=== PATIENT | female | born 1980 | race Caucasian/White ===

== ENCOUNTER 2018-04-23 01:26 | Inpatient (IN) ==
[2018-04-23] MEDS ORDERED: *HR* Nalbuphine 10 MG/ML AMPUL IM ONE (04:24)
[2018-04-23] MEDS ORDERED: Naloxone 0.4 MG/ML INJ IVP PRN (04:24)
[2018-04-23] MEDS ORDERED: *HR* HYDROcodone/Acet 5/325 mg TABLET PO PRN (04:24)
[2018-04-23] MEDS ORDERED: Isovue-370 500 ML INFUS..BTL IV ONE ×2 (04:25→11:05)
--- NOTE | 2018-04-23 04:46 | Internal Med History&Physical ---
Date of Encounter: 04/23/18 Time of Encounter: 04:42 Internal Medicine - H&P: HPI Chief complaint: finger swelling Admitted From: Home Plans for Post Hospital Care: Home History of present illness: Mel More is a 38 year old woman who reports a history of bradycardia and seizure disorder secondary to traumatic brain injury who presents here on transfer from [facility] for left middle finger swelling and pain. She states that about 3 weeks ago she first noticed slight swelling on the dorsum of the left middle finger which progressed and became erythematous. She was seen at [facility] ER and diagnosed with cellulitis of unclear etiology as she denied any trauma to the area or bite. She took 2 weeks of clindamycin at what seems to be a low dose as well as naproxen. She says she improved on this however by the time she completed treatment, the finger started to swell up again and this time worse. She was seen again in their ER last night and noted to have a double of the size of her finger with erythema extending down her mid-palm associated with functional impairment of the PIP joint. An x-ray was done which showed no fracture or signs of osteomyelitis. She was transferred here for further care. She reports having subjective fever and chills over these recent days. She denies ongoing illicit drug use, trauma to the finger or any bites. PMHx: As above. SHx: Active Smoker and reports illicit drug use over 20 years ago. FHx: CHF in mother. Review of systems: All systems reviewed and negative except as listed above in the HPI. Past Med Surg Social Fam HX - Past Medical History Medical history: seizures Psychiatric history: anxiety, depression - Social History Smoking Status: Current every day smoker Smokeless Tobacco Status: No Alcohol use: none Drug use: none Internal Medicine - H&P: Meds EPINEPHrine [Epipen] 0.3 mg IM ONCE 01/19/16 [History] Naproxen [Naprosyn] 500 mg PO BID #10 tablet 01/19/16 [Rx] Allergy/AdvReac Type Severity Reaction Status Date / Time Sulfa (Sulfonamide Allergy Anaphylaxis Verified 01/19/16 18:31 Antibiotics) venom-honey bee Allergy Swelling Verified 01/19/16 18:29 [bee venom (honey bee)] of Lip/Tongue/Throat All Systems PM: A 10-system review of systems was performed and is negative for pertinent findings except as documented above in the HPI. - Constitutional Vitals: Temp Pulse Resp BP Pulse Ox 98.5 F 58 16 111/72 100 04/23/18 04:34 04/23/18 04:34 04/23/18 04:34 04/23/18 04:34 04/23/18 04:34 Exam: Vitals: Reviewed General: Well developed and well-appearing and in no acute distress Skin: Warm and supple HEENT: Moist mucous membranes. No conjunctivae pallor. Neck: No lymphadenopathy. No JVD. No carotid bruits. No palpable thyroid. Chest: Normal thoracic expansion. Normal breath sounds. Clear to auscultation. Heart: Normal S1 & S2; rhythmic. No rubs or murmurs. Abdomen: Non-distended, soft and non-tender to palpation. No peritoneal reaction. Extremities: No clubbing, cyanosis. Left middle finger appears 3 times circumferentially larger than the corresponding right finger with notable erythema, taut skin with scaling, boggy and tender to touch, limited flexion/extension, sensation intact, warm. Neurological: Awake, alert and oriented to person, place and time. No focal deficits. Psych: Affect appropriate. - Assessment and plan (1) Cellulitis of left middle finger Current Visit: Yes Status: Acute Assessment and plan: Unclear etiology. Has failed 2 weeks of outpatient therapy and thereby warrants inpatient admission. Will obtain lactate and peripheral blood cultures. IV vancomycin. Obtain contrast CT to r/o drainable fluid collection. Monitor for compressive ischemic signs. May benefit from orthopedic hand surgery evaluation. Pain control as needed. (2) Seizure disorder Current Visit: Yes Status: Acute Assessment and plan: Patient reports being on "Neurontin 800mg TID". Precautions ordered. (3) Bradycardia Current Visit: Yes Status: Acute Assessment and plan: Sinus. Asymptomatic. No further intervention needed. (4) Smoker Current Visit: Yes Status: Acute Assessment and plan: Counseled extensively and resources made available. (5) DVT prophylaxis Current Visit: Yes Status: Acute Assessment and plan: SubQ heparin. - Time Spent With Patient Total time spent is greater than 50% in coordination of care (as documented) at patient's floor/unit and/or counseling patient: Greater than 35 minutes
[2018-04-23] MEDS: *HR* Heparin 5,000 UNIT/ML VIAL SQ SCH ×2 (05:34→18:19)
[2018-04-23 06:08] LABS: Basophils % 0.3 %; Eosinophils # 0.2 K/mcL (0.0-0.6); Eosinophils % 4.3 %; Hematocrit 31.5 % (35.3-44.9); Hemoglobin 10.3 g/dL (11.5-15.4); Immature Granulocytes % 0.3 % (0-4); Lymphocytes # 1.3 K/mcL (0.6-4.6); Mean Corpuscular HGB Conc 32.7 g/dL (31.6-35.5); Mean Corpuscular Hemoglobin 29.3 pg (28.0-33.3); Mean Corpuscular Volume 89.5 fL (83.0-100.0); Mean Platelet Volume 9.8 fL (9.4-12.4); Monocytes # 0.3 K/mcL (0.0-1.3); Monocytes % 8.1 %; Neutrophils # 1.7 K/mcL (1.6-8.9); Platelet Count 210 K/mcL (140-400); Red Blood Count 3.52 M/mcL (3.82-4.97); Red Cell Distribution Width 13.5 % (11.5-14.5)
[2018-04-23 06:16] LABS: INR 1.1; Prothrombin Time 11.9 Seconds (9.4-12.1)
[2018-04-23 06:20] LABS: Activated Partial Thrombo Time 40.3 Seconds (26.0-36.0)
[2018-04-23 06:27] LABS: Alanine Aminotransferase 41 Units/L (7-52); Albumin 3.9 g/dL (3.5-5.7); Alkaline Phosphatase 97 Units/L (34-104); Aspartate Amino Transferase 41 Units/L (13-39); BUN/Creatinine Ratio 17 (6-26); Bilirubin,Direct 0.2 mg/dL (0.0-0.2); Bilirubin,Indirect 0.3 mg/dL (0.0-1.2); Bilirubin,Total 0.5 mg/dL (0.3-1.0); Blood Urea Nitrogen 10 mg/dL (6-20); Calcium 9.1 mg/dL (8.6-10.3); Carbon Dioxide 27 mEq/L (23-29); Chloride 105 mEq/L (98-107); Globulin 3.8 g/dL (2.4-3.5); Glucose 97 mg/dL (70-105); Osmolality,Calculated 285 (280-300); Potassium 3.4 mEq/L (3.5-5.1); Sodium 138 mEq/L (136-145); Total Protein 7.7 g/dL (6.4-8.9); eGFR For Non-African Americans > 60 (> 60)
[2018-04-23] MEDS: Gabapentin 400 MG CAPSULE PO SCH ×3 (10:19→20:43)
[2018-04-23] MEDS: Ringers Solution, Lactated 1,000 ML IVC SCH ×2 (11:14→14:30)
--- NOTE | 2018-04-23 14:30 | Event Note ---
Date of Encounter: 04/23/18 Time of Encounter: 14:22 Per pharmacy pt had last filled suboxone feb 2018. When pt was asked what she was on suboxone for, she stated " I did some stupid stuff at 13 years" Pt states she was abusing Xana and was using THC. After more questioning she admitted to hx of opiod abuse. She denies IVD use. CT L hand switched from routine to STAT CT L hand. CT/CT hand LT w con IMPRESSION: Tenosynovitis of the 3rd flexor tendons with associated soft tissue swelling. This could be inflammatory or infectious in nature. The findings were sent to the Radiology Results Communication Center at 12:24 pm on 04/23/2018to be communicated to a licensed caregiver. Physical exam: General: Alert and oriented x 3. Heart. RRR, S1, S2 audible and no murmur. Lungs. CTABL Extremities. Left middle/3rd digit indurated with edema, and erythema. painful to the touch. Case discussed with Orthopedic and will see pt in consult.
[2018-04-23] MEDS: *HR* OxyCODONE Immed Rel 5 MG TABLET PO PRN ×2 (14:35→20:44)
--- NOTE | 2018-04-23 18:41 | Orthopedic Consult Note ---
Date of Encounter: 04/24/18 Time of Encounter: 17:50 Assessment and Plan (1) Cellulitis of left middle finger Current Visit: Yes Status: Acute CT shows tenosynovitis to left long finger. Compartments still soft but finger held in flexed position, unable to extend finger at PIPJ and significant swelling to proximal phalanx. Discussed with Dr. Santiago who recommends formal I&D of the left long finger in the OR scheduled for tomorrow. I reviewed the proce dure with patient as well as r/b/a and she expressed understanding. 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 NPO after midnight tonight. Keep hand elevated ROM as tolerated. Pain control per hospitalist. IV abx per hospitalist. Will reassess in the morning for any improvement or worsening and adjust plan as necessary. History of Present Illness Chief complaint: left hand swelling HPI: Ms. More is a 38 year old female who was transferred from [facility] today for left hand infection. she states that 3 weeks ago she woke up that morning and the finger felt like she had stoved it. She had swelling and redness later developed to long finger and she went to [facility] ER where she states she was prescribed 1.5 weeks worth of clindamycin. States symptoms improved while taking abx but then significantly worsened as soon as she finished the abx about a week ago. Shates pain is described as burning and throbbing intermittent, worse with motion. Currently pain is tolerable with medications. Pain localized to hand and does not radiate up arm. She states at one point the skin was sloughing around the finger but has not happened again recently. She denies any known trauma to the hand, any insect bites or needle sticks. Denies IVDA but did later admit to hospitalist previous h/o opioid abuse and has recently been on suboxone. She has a history of seizures and states maybe she had a seizure while she was sleeping and hit finger. Denies any n/t to hand. States she had some nausea a couple days ago but this has resolved. Denies any vomiting. Denies chest pain, SOB, fevers or chills. She is left hand dominant. Past Med Surg Social Fam HX - Past Medical History Medical history: seizures Psychiatric history: anxiety, depression - Social History Smoking Status: Current every day smoker Smokeless Tobacco Status: No Alcohol use: none Drug use: none - Family History Mother Living Status: Age at : 75 Hx Family Cardiac Disorders: Yes Medications and Allergies No Known Home Drugs 04/23/18 [History] Allergy/AdvReac Type Severity Reaction Status Date / Time Sulfa (Sulfonamide Allergy Anaphylaxis Verified 04/23/18 08:30 Antibiotics) venom-honey bee Allergy Swelling Verified 04/23/18 08:30 [bee venom (honey bee)] of Lip/Tongue/Throat All Systems Reviewed: The remainder of the systems were reviewed and are negative - Constitutional Constitutional: as per HPI - Cardiovascular Cardiovascular: as per HPI - Respiratory Respiratory: as per HPI - Musculoskeletal Musculoskeletal: as per HPI Physical Exam - Constitutional Vitals: Temp Pulse Resp BP Pulse Ox 97.9 F 67 16 103/63 98 04/23/18 07:34 04/23/18 07:34 04/23/18 07:34 04/23/18 07:34 04/23/18 07:34 - Wrist & Hand left Location of pain: long finger (significant swelling to long finger proximal phalanx, erythema noted on palmar surface over proximal phalanx extending down to 3rd metacarpal.long finger is held in flexed position and unable to passively extend the finger at PIPJ, minimal ROM at MP joint.Moderate tenderness to palpation along tendon sheath at base of long finger over MC head, minimal pain with palpation over proximal phalanx. brisk cap refill. good sensation distally. ) Results - Labs Result Diagrams: 04/23/18 05:54 04/23/18 05:54 Labs: Abnormal lab results WBC 3.5 K/mcL (4.3-11.1) L 04/23/18 05:54 RBC 3.52 M/mcL (3.82-4.97) L 04/23/18 05:54 Hgb 10.3 g/dL (11.5-15.4) L 04/23/18 05:54 Hct 31.5 % (35.3-44.9) L 04/23/18 05:54 APTT 40.3 Seconds (26.0-36.0) H 04/23/18 05:54 Potassium 3.4 mEq/L (3.5-5.1) L 04/23/18 05:54 Creatinine 0.59 mg/dL (0.60-1.20) L 04/23/18 05:54 AST 41 Units/L (13-39) H 04/23/18 05:54 Globulin 3.8 g/dL (2.4-3.5) H 04/23/18 05:54 Albumin/Globulin Ratio 1.0 (1.1-2.2) L 04/23/18 05:54 H & H 04/23/18 Range/Units 05:54 Hgb 10.3 L (11.5-15.4) g/dL Hct 31.5 L (35.3-44.9) % All other labs normal. - Diagnostic results Wrist/Hand x-ray: image reviewed Wrist/Hand CT: report reviewed Consult Discharge Plan - Plan Referrals: NONE,PCP [Primary Care Provider] - - Attending Attestation Case and plan of care discussed with supervising physician who was available for all aspects of care.
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
[2018-04-23] MEDS: Ibuprofen 400 MG TABLET PO PRN (23:39)
[2018-04-24] MEDS: *HR* OxyCODONE Immed Rel 5 MG TABLET PO PRN ×3 (02:36→23:34)
[2018-04-24] MEDS: *HR* Heparin 5,000 UNIT/ML VIAL SQ SCH ×2 (05:51→18:14)
[2018-04-24] MEDS: Ringers Solution, Lactated 1,000 ML IVC SCH ×2 (07:16→16:39)
[2018-04-24] MEDS: Gabapentin 400 MG CAPSULE PO SCH ×3 (08:52→21:47)
[2018-04-24 10:49] LABS: Amphetamine Screen,Urine Positive ng/mL (Cutoff=1000); Barbiturate Screen,Urine Negative ng/mL (Cutoff=200); Benzodiazepines Screen,Urine Negative ng/mL (Cutoff=200); Cannabinoid Screen,Urine Positive ng/mL (Cutoff = 50); Cocaine Screen,Urine Negative ng/mL (Cutoff= 300); Opiate Screen,Urine Positive ng/mL (Cutoff=300); Phencyclidine Screen,Urine Negative ng/mL (Cutoff=25)
[2018-04-24] MEDS: Ibuprofen 400 MG TABLET PO PRN (11:00)
[2018-04-24] MEDS ORDERED: Lidocaine -MPF 2% 2 ML VIAL ONE (13:31)
[2018-04-24] MEDS ORDERED: *HR* Propofol 200 MG/20 ML VIAL IVP ONE ×2 (13:31→13:43)
[2018-04-24] MEDS ORDERED: *HR* FentaNYL (PF) 100 MCG/2 ML VIAL ONE (13:31)
[2018-04-24] MEDS ORDERED: *HR* Midazolam HCl 2 MG/2 ML VIAL ONE ×2 (13:31→13:43)
[2018-04-24] MEDS ORDERED: *HR* Succinylcholine 200 MG/10 ML VIAL IVP ONE (13:31)
[2018-04-24] MEDS ORDERED: *HR* HYDROmorphone (PF) 1 MG/ML SYRINGE ONE (13:48)
[2018-04-24] MEDS ORDERED: *HR* Midazolam HCl 5 MG/5 ML VIAL IVP ONE (14:01)
[2018-04-24] MEDS ORDERED: EPHEDrine 50 MG/ML VIAL ONE (14:17)
[2018-04-24] MEDS ORDERED: *HR* Promethazine 25 MG/ML VIAL IVP PRN ×2 (14:33→16:30)
[2018-04-24] MEDS ORDERED: *HR* OxyCODONE Immed Rel 5 MG TABLET PO PRN (14:33)
[2018-04-24] MEDS ORDERED: Ondansetron 4 MG/2 ML VIAL IVP ONE ×2 (14:33→16:30)
--- NOTE | 2018-04-24 15:00 | Operative Note ---
Date of procedure: 04/24/18 Pre-op diagnosis: Left hand/long finger suppurative flexor tenosynovitis Post-op diagnosis: same Procedure: Left hand incision and drainage of long finger flexor tendon sheath Anesthesia: GETA Surgeon: Marco Santiago Was there an medical practice assistant present: Yes [employer] Manager: Maya Ruiz Estimated blood loss (cc): 10 Tourniquet Time (Minutes): 11 Specimen: Sent to microbiology Condition: stable Disposition: PACU Procedure in Detail: The patient received IV antibiotics from the floor, was brought into the operating room and placed or table in supine position with the left upper extremity placed on hand table. A sign in was performed. The patient underwent general anesthesia. A tourniquet was placed on the operative arm close to the axilla. The left upper extremity was then prepped and draped in usual sterile fashion. A time was performed. The operative extremity was then elevated, pressure was held over the radial and ulnar arteries of the wrist level for 2 minutes, and the tourniquet was raised to a pressure of 250 mmHg. A 2 cm oblique incision was made on the volar aspect of the left long finger centered over the P1 segment. I bluntly dissected through the subcutaneous tissue and identified the flexor tendon sheath system. This mild tissue necrosis and the flexed tendon sheath was opened at the C1/A3 level, the flexor tendons appeared in good condition A 2.5 cm oblique incision was made over the A1 pablo at the base of the left long finger just proximal to the metacarpophalangeal joint flexion crease. The flexor sheath was opened proximal to the A1 pablo and the proximal end of the A1 pablo was then sharply incised. The finger was flexed, and there was minimal turbid fluid coming out from underneath the A2 pablo. An 8-Georgian feeding tube was placed into the flexed tendon sheath and irrigated out. This placed initially from the proximal side and also distal side. Also irrigated out going more distally under the A4 pablo. The tourniquet was let down. The wounds were irrigated with normal saline once again and hemostasis obtained with bipolar electrocautery. Skin incision were partially closed with 5-0 nylon vertical mattress and simple sutures. The wound was then packed with iodoform packing with 1 long strip going between the wounds. The base of the left long finger was infiltrated with 10 mL of 0.5% Marcaine providing a local block.Sterile dressings applied, the patient was extubated and taken to the recovery room in stable condition.
[2018-04-24] MEDS: *HR* HYDROmorphone (PF) 1 MG/ML SYRINGE IVP PRN ×4 (15:33→15:54)
--- NOTE | 2018-04-24 16:10 | Internal Med Progress Note ---
Hospitalist Progress Note - Encounter Date of Encounter: 04/24/18 Time of Encounter: 16:08 - Subjective Interval History: Pt states still having left middle finger pain. She denies fever, chills, N/V or diarrhea. She denies chest pain or SOB. - Exam Vitals: Temp Pulse Resp BP Pulse Ox 97.7 F 64 16 113/81 97 04/24/18 15:33 04/24/18 15:53 04/24/18 15:53 04/24/18 15:53 04/24/18 15:53 Exam: Vitals: Reviewed General: Well developed and well-appearing and in no acute distress Skin: Warm and supple HEENT: Moist mucous membranes. No conjunctivae pallor. Neck: No lymphadenopathy. No JVD. No carotid bruits. No palpable thyroid. Chest: Normal thoracic expansion. Normal breath sounds. Clear to auscultation. Heart: Normal S1 & S2; rhythmic. No rubs or murmurs. Abdomen: Non-distended, soft and non-tender to palpation. No peritoneal reaction. Extremities: No clubbing, cyanosis. Left middle finger appears 3 times circumferentially larger than the corresponding right finger with notable erythema, taut skin with scaling, boggy and tender to touch, limited flexion/extension, sensation intact, warm. Neurological: Awake, alert and oriented to person, place and time. No focal deficits. Psych: Affect appropriate. - Assessment and Plan (1) Tenosynovitis Current Visit: Yes Status: Acute Assessment and Plan: Unclear how infection developed. Has failed 2 weeks of outpatient therapy and thereby warrants inpatient admission. Peripheral blood cultures in progress. I Contrast CT of L hand showed tenosynovitis of 3rd digit/middle finger Orthopedic service consulted and pt taken to OR 04/24/2018. She is s/p L hand incision and drainage of long finger flexor tendon sheath. IV vancomycin and Zosyn ordered and will continue for now. Will adjust antibiotic based on culture and sensitivity results. Pain control as needed. (2) Cellulitis of left middle finger Current Visit: Yes Status: Acute Assessment and Plan: s/p ID of left 3rd digit of left hand IV vancomycin and Zosyn ordered and will continue for now. Will adjust antibiotic based on culture and sensitivity results. Pain control as needed. (3) Seizure disorder Current Visit: Yes Status: Acute Assessment and Plan: Patient reports being on "Neurontin 800mg TID". Sz precautions ordered. (4) Bradycardia Current Visit: Yes Status: Acute Assessment and Plan: Sinus. Asymptomatic. No further intervention needed. (5) Smoker Current Visit: Yes Status: Acute Assessment and Plan: Counseled extensively and resources made available. Cessation strongly advised. (6) Substance abuse Current Visit: Yes Status: Acute Assessment and Plan: Pt not forthcoming about drug use hx. She last filled suboxone Feb 2018. Pt's urine tox tested positive for Meth. Cessation strongly advised. DVT Prophylaxis: SubQ heparin. 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 She states that about 3 weeks ago she first noticed slight swelling on the dorsum of the left middle finger which progressed and became erythematous. She was seen at [facility] ER and diagnosed with cellulitis of unclear etiology as she denied any trauma to the area or bite. She took 2 weeks of clindamycin at what seems to be a low dose as well as naproxen. She says she improved on this however by the time she completed treatment, the finger started to swell up again and this time worse. She was seen again in their ER last night and noted to have a double of the size of her finger with erythema extending down her mid-palm associated with functional impairment of the PIP joint. An x-ray was done which showed no fracture or signs of osteomyelitis. She was transferred here for further care. She reports having subjective fever and chills over these recent days. She denies ongoing illicit drug use, trauma to the finger or any bites. PMHx: As above. SHx: Active Smoker and reports illicit drug use over 20 years ago. FHx: CHF in mother. Review of systems: All systems reviewed and negative except as listed above in the HPI. - Time Spent with Patient Total time spent is greater than 50% in coordination of care (as documented) at patient's floor/unit and/or counseling patient: 25 - 35 minutes Plan of Care Discussed with: patient Internal Medicine: Result - Labs CBC & Chem 7: 04/23/18 05:54 04/23/18 05:54 - ABG Interpretation ABG results: PT/INR, D-dimer PT 11.9 Seconds (9.4-12.1) 04/23/18 05:54 - Impressions Impressions Hand CT 04/23/18 11:05 IMPRESSION: Tenosynovitis of the 3rd flexor tendons with associated soft tissue swelling. This could be inflammatory or infectious in nature. The findings were sent to the Radiology Results Communication Center at 12:24 pm on 04/23/2018to be communicated to a licensed caregiver. D/ / 04/23/2018 12:27:34 Endy De Jesus / ivan Interpreting Provider: Endy De Jesus Consult Discharge Plan - Plan Referrals: NONE,PCP [Primary Care Provider] -
[2018-04-24] MEDS ORDERED: Ringers Solution, Lactated 1,000 ML ONE (16:24)
--- NOTE | 2018-04-24 16:26 | Anesthesia Evaluation Post Op ---
Date of Encounter: 04/24/18 Time of Encounter: 16:26 - Vital Signs Vital Signs: Vital Signs/O2 Sat, Most Current Temp Pulse Resp BP Pulse Ox 97.4 F L 49 16 112/72 100 04/24/18 16:03 04/24/18 16:13 04/24/18 16:13 04/24/18 16:13 04/24/18 16:13 - Lungs Lungs: Clear Ascult./Percussion - Airway Airway: Non-obstructed - Cardiovascular Regular Rate - Mental Status Mental Status: Alert & Oriented, Answers Appropriately - Pain Pain Scale: 6 Pain Scale used: Numeric (1 - 10) - Nausea Vomiting Nausea Vomiting: Not Present - Hydration Hydration: Ice chips, Has not voided Notes: 04/24/18 16:26 pt denies complaints - Discharge PostOp Status: Transfer Patient to floor
[2018-04-24] MEDS ORDERED: Naloxone 0.4 MG/ML INJ IVP PRN (16:30)
[2018-04-24] MEDS ORDERED: *HR* HYDROmorphone (PF) 1 MG/ML SYRINGE IVP PRN (16:30)
[2018-04-24 21:37] LABS: Acinetobacter baumannii by PCR Not Detected (Not Detect); Candida albicans by PCR Not Detected (Not Detect); Candida glabrata by PCR Not Detected (Not Detect); Candida krusei by PCR Not Detected (Not Detect); Candida parapsilosis by PCR Not Detected (Not Detect); Candida tropicalis by PCR Not Detected (Not Detect); Enterobacter cloacae Cmplx PCR Not Detected (Not Detect); Enterobacteriaceae by PCR Not Detected (Not Detect); Enterococcus by PCR Not Detected (Not Detect); Escherichia coli by PCR Not Detected (Not Detect); Klebsiella oxytoca by PCR Not Detected (Not Detect); Klebsiella pneumoniae by PCR Not Detected (Not Detect); Proteus by PCR Not Detected (Not Detect); Pseudomonas aeruginosa by PCR Not Detected (Not Detect); Serratia marcescens by PCR Not Detected (Not Detect); Staphylococcus aureus by PCR Not Detected (Not Detect); Staphylococcus by PCR Not Detected (Not Detect); Streptococcus agalactiae(B)PCR Not Detected (Not Detect); Streptococcus by PCR DETECTED (Not Detect); Streptococcus pneumoniae PCR Not Detected (Not Detect); Streptococcus pyogenes (A) PCR Not Detected (Not Detect); blaKPC Carbapenem-Resist Gene Not Detected (Not Detect); mecA Methicillin-Resist Gene Not Detected (Not Detect); vanA/B Vancomycin-Resist Genes Not Detected (Not Detect)
[2018-04-24] MEDS: Nicotine 14 MG PATCH.TD24 TD SCH (21:45)
[2018-04-24] MEDS: *HR* HYDROcodone/Acet 5/325 mg TABLET PO PRN (21:47)
[2018-04-25] MEDS: *HR* OxyCODONE Immed Rel 5 MG TABLET PO PRN ×3 (06:16→21:46)
[2018-04-25] MEDS: *HR* Heparin 5,000 UNIT/ML VIAL SQ SCH ×2 (06:18→17:59)
[2018-04-25 07:17] LABS: Basophils % 0.6 %; Eosinophils # 0.2 K/mcL (0.0-0.6); Eosinophils % 5.2 %; Hemoglobin 9.3 g/dL (11.5-15.4); Lymphocytes # 1.2 K/mcL (0.6-4.6); Lymphocytes % 33.5 %; Mean Corpuscular HGB Conc 33.2 g/dL (31.6-35.5); Mean Corpuscular Volume 90.3 fL (83.0-100.0); Mean Platelet Volume 10.3 fL (9.4-12.4); Monocytes # 0.3 K/mcL (0.0-1.3); Monocytes % 7.2 %; Neutrophils # 1.9 K/mcL (1.6-8.9); Platelet Count 219 K/mcL (140-400); Red Cell Distribution Width 13.9 % (11.5-14.5); Segmented Neutrophils % 53.5 %
[2018-04-25 07:33] LABS: BUN/Creatinine Ratio 14 (6-26); Blood Urea Nitrogen 8 mg/dL (6-20); Calcium 8.5 mg/dL (8.6-10.3); Carbon Dioxide 26 mEq/L (23-29); Chloride 108 mEq/L (98-107); Glucose 97 mg/dL (70-105); Osmolality,Calculated 288 (280-300); Potassium 3.9 mEq/L (3.5-5.1); Sodium 140 mEq/L (136-145); eGFR For Non-African Americans > 60 (> 60)
[2018-04-25 08:10] LABS: C-Reactive Protein 12 mg/L (Less than 10)
[2018-04-25] MEDS: *HR* HYDROcodone/Acet 5/325 mg TABLET PO PRN ×2 (09:11→17:54)
[2018-04-25] MEDS: Gabapentin 400 MG CAPSULE PO SCH ×3 (09:11→21:45)
[2018-04-25] MEDS: Nicotine 14 MG PATCH.TD24 TD SCH (09:13)
--- NOTE | 2018-04-25 10:25 | Internal Med Progress Note ---
Hospitalist Progress Note - Encounter Date of Encounter: 04/25/18 Time of Encounter: 10:23 - Subjective Interval History: Pt states still having left middle finger pain. She denies fever, chills, N/V or diarrhea. She denies chest pain or SOB. - Exam Vitals: Temp Pulse Resp BP Pulse Ox 98.7 F 82 13 107/60 99 04/25/18 04:35 04/25/18 04:35 04/25/18 04:35 04/25/18 04:35 04/25/18 04:35 Exam: Vitals: Reviewed General: Well developed and well-appearing and in no acute distress Skin: Warm and supple HEENT: Moist mucous membranes. No conjunctivae pallor. Neck: No lymphadenopathy. No JVD. No carotid bruits. No palpable thyroid. Chest: Normal thoracic expansion. Normal breath sounds. Clear to auscultation. Heart: Normal S1 & S2; rhythmic. No rubs or murmurs. Abdomen: Non-distended, soft and non-tender to palpation. No peritoneal reaction. Extremities: No clubbing, cyanosis. On admission left middle finger appeared 3 times circumferentially larger than the corresponding right finger with notable erythema, taut skin with scaling, boggy and tender to touch, limited flexion/extension, sensation intact, warm. s/p incision and drainage. Dressing clean dry and intact. Neurological: Awake, alert and oriented to person, place and time. No focal defi cits. Psych: Affect appropriate. - Assessment and Plan (1) Tenosynovitis Current Visit: Yes Status: Acute Assessment and Plan: Unclear how infection developed. Has failed 2 weeks of outpatient therapy and thereby warrants inpatient admission. Peripheral blood cultures in progress. I Contrast CT of L hand showed tenosynovitis of 3rd digit/middle finger Orthopedic service consulted and pt taken to OR 04/24/2018. She is s/p L hand incision and drainage of long finger flexor tendon sheath. IV vancomycin and Zosyn ordered and will continue for now. Wound culture so far growing Gram + cocci, Strep species. Will adjust antibiotic based on culture and sensitivity results. Pain control as needed. Possible DC today or 04/26/2018 on PO antibiotic depending on culture and sensitivity results. (2) Cellulitis of left middle finger Current Visit: Yes Status: Acute Assessment and Plan: s/p ID of left 3rd digit of left hand IV vancomycin and Zosyn ordered and will continue for now. Wound culture so far growing Gram + cocci, Strep species. Will adjust antibiotic based on culture and sensitivity results. Pain control as needed. (3) Seizure disorder Current Visit: Yes Status: Acute Assessment and Plan: Patient reports being on "Neurontin 800mg TID". Sz precautions ordered. (4) Bradycardia Current Visit: Yes Status: Acute Assessment and Plan: Sinus. Asymptomatic. No further intervention needed. (5) Smoker Current Visit: Yes Status: Acute Assessment and Plan: Counseled extensively and resources made available. Cessation strongly advised. (6) Substance abuse Current Visit: Yes Status: Acute Assessment and Plan: Pt not forthcoming about drug use hx. She last filled suboxone Feb 2018. Pt's urine tox tested positive for Meth. Cessation strongly advised. DVT Prophylaxis: SubQ heparin. 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 She states that about 3 weeks ago she first noticed slight swelling on the dorsum of the left middle finger which progressed and became erythematous. She was seen at [facility] ER and diagnosed with cellulitis of unclear etiology as she denied any trauma to the area or bite. She took 2 weeks of clindamycin at what seems to be a low dose as well as naproxen. She says she improved on this however by the time she completed treatment, the finger started to swell up again and this time worse. She was seen again in their ER last night and noted to have a double of the size of her finger with erythema extending down her mid-palm associated with functional impairment of the PIP joint. An x-ray was done which showed no fracture or signs of osteomyelitis. She was transferred here for further care. She reports having subjective fever and chills over these recent days. She denies ongoing illicit drug use, trauma to the finger or any bites. PMHx: As above. SHx: Active Smoker and reports illicit drug use over 20 years ago. FHx: CHF in mother. Review of systems: All systems reviewed and negative except as listed above in the HPI. - Time Spent with Patient Total time spent is greater than 50% in coordination of care (as documented) at patient's floor/unit and/or counseling patient: less than 15 minutes Plan of Care Discussed with: patient Internal Medicine: Result - Labs CBC & Chem 7: 04/25/18 06:08 04/25/18 06:08 Labs: Short CBC 04/25/18 Range/Units 06:08 WBC 3.5 L (4.3-11.1) K/mcL Hgb 9.3 L (11.5-15.4) g/dL Hct 28.0 L (35.3-44.9) % Plt Count 219 (140-400) K/mcL Neutrophils # 1.9 (1.6-8.9) K/mcL BMP 04/25/18 06:08 Sodium 140 Potassium 3.9 Chloride 108 H Carbon Dioxide 26 BUN 8 Creatinine 0.59 L Glucose 97 Calcium 8.5 L - ABG Interpretation ABG results: PT/INR, D-dimer PT 11.9 Seconds (9.4-12.1) 04/23/18 05:54 Consult Discharge Plan - Plan Referrals: NONE,PCP [Primary Care Provider] -
--- NOTE | 2018-04-25 13:59 | Orthopedics Progress Note ---
Date of Encounter: 04/25/18 Time of Encounter: 12:45 - Assessment and Plan (1) Cellulitis of left middle finger Current Visit: Yes Status: Acute Packing removed today from wound. Small amount purulent drainage with palpation around incision. Begin local wound care cleansing with soap/water 3xdaily then recover with dry gauze/kerlix dressings to allow ROM of fingers. Continue to elevate LUE. Can hang inside stockinette from IV pole to help keep elevated especially while sleeping. Labs: WBC 3.5, ESR 86 -->68, CRP 20 -->12 IV abx and pain control per hospitalist. Wound cultures are still pending Blood culture + x1 for G+cocci - Strep sp Will continue to monitor progress. Will follow up with Maya Ruiz PA-C in [facility] office on 04/30/18 at 10:45am Subjective Principal diagnosis: POD#1 s/p Left hand I&D of long finger flexor tendon sheath 04/24/18 Interval history: Patient doing well today with no concerns other than pain to left hand. Intermittent tingling to fingers. Denies any other symptoms at this time. Objective Vital signs: Vital Signs Temp Pulse Resp BP Pulse Ox 04/25/18 11:29 97.6 F 81 20 138/77 100 04/25/18 04:35 98.7 F 82 13 107/60 99 04/24/18 23:56 98.7 F 83 16 117/68 100 04/24/18 20:15 98.5 F 69 18 109/58 100 04/24/18 17:15 95.1 F L 52 14 121/74 100 04/24/18 17:00 95.0 F L 48 10 119/80 100 04/24/18 16:45 74 14 139/78 98 04/24/18 16:30 94.6 F L 44 12 119/66 100 04/24/18 16:13 97.4 F L 49 16 112/72 100 04/24/18 16:03 97.4 F L 68 16 112/75 100 04/24/18 15:53 64 16 113/81 97 04/24/18 15:43 57 16 113/73 100 04/24/18 15:33 97.7 F 72 16 134/85 100 04/24/18 15:23 70 16 117/72 100 04/24/18 15:13 64 16 118/67 98 04/24/18 15:03 97.4 F L 77 20 110/58 97 Intake and Output 04/24/18 04/25/18 04/25/18 23:59 07:59 15:59 Intake Total 250 / 250 Balance 250 / 250 Intake: IV Fluids 250 / 250 Vancocin 1,000 MG In 0.9 % 250 / 250 Sodium Chloride 250 ML @ 167 mls/hr IVPB Q12H DENNY Rx#: [id number] Oral Other: # Urine Diapers 2 Weight 75.6 kg Incision: swollen (Continued swelling to left LF proximal phalanx and palmar area over 2/3/4 MC heads with mild erythema. Sutures in place, packing place. small amount purulent drainage after removal of packing. Continue restrcted motion of LF flexion and extension. brisk cap refill, sensation intact distally) - Labs CBC & BMP: 04/25/18 06:08 04/25/18 06:08 Labs: Abnormal lab results WBC 3.5 K/mcL (4.3-11.1) L 04/25/18 06:08 RBC 3.10 M/mcL (3.82-4.97) L 04/25/18 06:08 Hgb 9.3 g/dL (11.5-15.4) L 04/25/18 06:08 Hct 28.0 % (35.3-44.9) L 04/25/18 06:08 ESR 68 mm/hr (0-15) H 04/25/18 06:08 APTT 40.3 Seconds (26.0-36.0) H 04/23/18 05:54 Chloride 108 mEq/L (98-107) H 04/25/18 06:08 Creatinine 0.59 mg/dL (0.60-1.20) L 04/25/18 06:08 POC Glucose 113 mg/dL (70-99) H 04/25/18 07:51 Calcium 8.5 mg/dL (8.6-10.3) L 04/25/18 06:08 AST 41 Units/L (13-39) H 04/23/18 05:54 C-Reactive Protein 12 mg/L (Less than 10) H 04/25/18 06:08 Globulin 3.8 g/dL (2.4-3.5) H 04/23/18 05:54 Albumin/Globulin Ratio 1.0 (1.1-2.2) L 04/23/18 05:54 Vancomycin Trough 17 mcg/mL (5-10) H 04/24/18 13:36 Urine Opiates Screen Positive ng/mL (Mbadcl=239) H 04/24/18 10:25 Ur Amphetamines Screen Positive ng/mL (Vjxlbt=[id number]) H 04/24/18 10:25 U Marijuana (THC) Screen Positive ng/mL (Cutoff = 50) H 04/24/18 10:25 Streptococcus sp PCR DETECTED (Not Detect) A 04/24/18 03:03 Consult Discharge Plan - Plan Referrals: NONE,PCP [Primary Care Provider] -
[2018-04-26] MEDS: *HR* Heparin 5,000 UNIT/ML VIAL SQ SCH ×2 (04:36→17:36)
[2018-04-26] MEDS: Gabapentin 400 MG CAPSULE PO SCH ×3 (08:21→21:14)
[2018-04-26] MEDS: *HR* OxyCODONE Immed Rel 5 MG TABLET PO PRN ×3 (08:21→17:49)
[2018-04-26] MEDS: Nicotine 14 MG PATCH.TD24 TD SCH (08:22)
--- NOTE | 2018-04-26 10:05 | Internal Med Progress Note ---
Hospitalist Progress Note - Encounter Date of Encounter: 04/26/18 Time of Encounter: 10:02 - Subjective Interval History: gayla was seen and examiend at bedside. has no complaints, reports that her pain is controlled with pain medications provided. tolerating diet. no overnight events. - Exam Vitals: Temp Pulse Resp BP Pulse Ox 98.5 F 89 18 130/56 98 04/26/18 06:53 04/26/18 06:53 04/26/18 06:53 04/26/18 06:53 04/26/18 06:53 Exam: General: Well developed and well-appearing and in no acute distress Skin: Warm and supple HEENT: Moist mucous membranes. No conjunctivae pallor. Neck: No lymphadenopathy. No JVD. No carotid bruits. No palpable thyroid. Chest: Normal thoracic expansion. Normal breath sounds. Clear to auscultation. Heart: Normal S1 & S2; rhythmic. No rubs or murmurs. Abdomen: Non-distended, soft and non-tender to palpation. No peritoneal reaction. Extremities: No clubbing, cyanosis. moving the fingers of the left hand, swollen, wrapped in clean dressing Neurological: Awake, alert and oriented to person, place and time. No focal def icits. Psych: Affect appropriate. - Assessment and Plan (1) Tenosynovitis Current Visit: Yes Status: Acute Assessment and Plan: Has failed 2 weeks of outpatient therapy and thereby warrants inpatient admission. WBC 3.5, ESR 86 -->68, CRP 20 -->[address] of L hand showed tenosynovitis of 3rd digit/middle finger Orthopedic service consulted and pt taken to OR 04/24/2018. She is s/p L hand incision and drainage of long finger flexor tendon sheath. on IV vancomycin Wound culture from 04/26- growing staph - follow sensitivity also strep positive PCR Bcx: growing gram positive cocci- follow sensitivity Will adjust antibiotic based on culture and sensitivity results. Pain control as needed. (2) Cellulitis of left middle finger Current Visit: Yes Status: Acute Assessment and Plan: s/p I&D of left 3rd digit of left hand WBC 3.5, ESR 86 -->68, CRP 20 -->12 on IV vancomycin Wound culture from 04/26- growing staph - follow sensitivity also strep positive PCR Bcx: growing gram positive cocci- follow sensitivity orthopedics on board local wound care cleansing with soap/water 3xdaily then recover with dry gau ze/kerlix dressings to allow ROM of fingers. has drug use disorder will get TTE as blood cx are positive (3) Gram-positive bacteremia Current Visit: Yes Status: Acute Assessment and Plan: WBC 3.5, ESR 86 -->68, CRP 20 -->12 with cellulitis adn tenosynovitis of the left hand on IV vancomycin has history of drug use TTE ordered 2 new Bcx ordered on 04/26/18 will follow HIV with AM labs (4) Seizure disorder Current Visit: Yes Status: Acute Assessment and Plan: Patient reports being on "Neurontin 800mg TID". Sz precautions (5) Bradycardia Current Visit: Yes Status: Acute Assessment and Plan: Sinus. Asymptomatic. No further intervention needed. (6) Smoker Current Visit: Yes Status: Acute Assessment and Plan: Counseled extensively and resources made available. Cessation strongly advised. (7) Substance abuse Current Visit: Yes Status: Acute Assessment and Plan: Pt not forthcoming about drug use hx. She last filled suboxone Feb 2018. Pt's urine tox tested positive for amphetamines, opiates and marijuanna will send HIV Cessation strongly advised. - Time Spent with Patient Total time spent is greater than 50% in coordination of care (as documented) at patient's floor/unit and/or counseling patient: Internal Medicine: Result - Labs CBC & Chem 7: 04/25/18 06:08 04/25/18 06:08 - ABG Interpretation ABG results: PT/INR, D-dimer PT 11.9 Seconds (9.4-12.1) 04/23/18 05:54 Consult Discharge Plan - Plan Referrals: NONE,PCP [Primary Care Provider] -
[2018-04-26] MEDS ORDERED: Perflutren Lipid Microsphere 1.3 ML in 0.9 % Sodium Chloride 8.7 ML IVP ONE (11:39)
[2018-04-26] MEDS: Ibuprofen 600 MG TABLET PO PRN (17:48)
[2018-04-26] MEDS ORDERED: Ondansetron 4 MG/2 ML VIAL IVP ONE (18:40)
[2018-04-27] MEDS: *HR* OxyCODONE Immed Rel 5 MG TABLET PO PRN ×4 (01:55→21:30)
[2018-04-27 02:50] LABS: Basophils % 0.6 %; Eosinophils # 0.2 K/mcL (0.0-0.6); Eosinophils % 3.8 %; Hematocrit 31.7 % (35.3-44.9); Hemoglobin 10.4 g/dL (11.5-15.4); Immature Granulocytes % 0.2 % (0-4); Lymphocytes % 19.9 %; Mean Corpuscular HGB Conc 32.8 g/dL (31.6-35.5); Mean Corpuscular Hemoglobin 29.5 pg (28.0-33.3); Mean Corpuscular Volume 90.1 fL (83.0-100.0); Mean Platelet Volume 10.1 fL (9.4-12.4); Monocytes # 0.3 K/mcL (0.0-1.3); Monocytes % 5.2 %; Neutrophils # 3.7 K/mcL (1.6-8.9); Platelet Count 241 K/mcL (140-400); Red Blood Count 3.52 M/mcL (3.82-4.97); Red Cell Distribution Width 13.7 % (11.5-14.5); Segmented Neutrophils % 70.3 %
[2018-04-27 03:04] LABS: BUN/Creatinine Ratio 12 (6-26); Blood Urea Nitrogen 8 mg/dL (6-20); Calcium 9.4 mg/dL (8.6-10.3); Carbon Dioxide 30 mEq/L (23-29); Chloride 104 mEq/L (98-107); Glucose 89 mg/dL (70-105); Osmolality,Calculated 288 (280-300); Potassium 3.6 mEq/L (3.5-5.1); Sodium 140 mEq/L (136-145); eGFR For Non-African Americans > 60 (> 60)
[2018-04-27] MEDS: *HR* Heparin 5,000 UNIT/ML VIAL SQ SCH ×2 (05:00→17:36)
[2018-04-27] MEDS: Nicotine 14 MG PATCH.TD24 TD SCH (08:30)
[2018-04-27] MEDS: Gabapentin 400 MG CAPSULE PO SCH ×3 (08:31→21:30)
[2018-04-27] MEDS: *HR* HYDROcodone/Acet 5/325 mg TABLET PO PRN ×2 (11:41→17:36)
--- NOTE | 2018-04-27 14:17 | Internal Med Progress Note ---
Hospitalist Progress Note - Encounter Date of Encounter: 04/27/18 Time of Encounter: 14:08 - Subjective Interval History: Patient is 38 year 68 female who has history of substance abuse, seizure disorder, bradycardia, chronic smoker, admitted for left 3rd finger cellulitis and tenosynovitis. Stated s/p I&D 3 days ago. She is doing well, finger swelling improved no pus draining from the wound. She is afebrile. She denies injury and active drug abuse. pending TETO recheck blood culture consult ID ordered and spoke to functional mental disability teacher ID - Exam Vitals: Temp Pulse Resp BP Pulse Ox 98.4 F 75 18 121/72 98 04/27/18 08:16 04/27/18 08:16 04/27/18 08:16 04/27/18 08:16 04/27/18 08:16 Exam: General: Well developed and well-appearing and in no acute distress Skin: Warm and supple HEENT: Moist mucous membranes. No conjunctivae pallor. Neck: No lymphadenopathy. No JVD. No carotid bruits. No palpable thyroid. Chest: Normal thoracic expansion. Normal breath sounds. Clear to auscultation. Heart: Normal S1 & S2; rhythmic. No rubs or murmurs. Abdomen: Non-distended, soft and non-tender to palpation. No peritoneal reaction. Extremities: No clubbing, cyanosis. moving the fingers of the left hand, swollen, wrapped in clean dressing Neurological: Awake, alert and oriented to person, place and time. No focal deficits. Psych: Affect appropriate. - Assessment and Plan (1) Gram-positive bacteremia Current Visit: Yes Status: Acute Assessment and Plan: BC with strep, but wound culture growing Staph, zosyn was d/mercedes few days ago, TETO is pending. will consult ID, recheck blood culture (2) Tenosynovitis Current Visit: Yes Status: Acute Assessment and Plan: conitnue IV vancomycin wound care per ortho (3) Cellulitis of left middle finger Current Visit: Yes Status: Acute Assessment and Plan: s/p I&D, Begin local wound care cleansing with soap/water 3xdaily then recover with dry gauze/kerlix dressings to allow ROM of fingers. IV abx and pain control per hospitalist. Wound cultures growing Staph, conitneu IV vancomycin Blood culture + x1 for G+cocci - Strep sp--consult ID Will follow up with Maya Ruiz PA-C in [facility] office on 04/30/18 at 10:45am (4) Seizure disorder Current Visit: Yes Status: Chronic (5) Bradycardia Current Visit: Yes Status: Chronic (6) Smoker Current Visit: Yes Status: Chronic (7) DVT prophylaxis Current Visit: Yes Status: Acute (8) Substance abuse Current Visit: Yes Status: Acute DVT Prophylaxis: SubQ heparin. 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 Zapata - Time Spent with Patient Total time spent is greater than 50% in coordination of care (as documented) at patient's floor/unit and/or counseling patient: 25 - 35 minutes Plan of Care Discussed with: patient Internal Medicine: Result - Labs CBC & Chem 7: 04/27/18 02:39 04/27/18 02:39 Labs: Short CBC 04/27/18 Range/Units 02:39 WBC 5.2 (4.3-11.1) K/mcL Hgb 10.4 L (11.5-15.4) g/dL Hct 31.7 L (35.3-44.9) % Plt Count 241 (140-400) K/mcL Neutrophils # 3.7 (1.6-8.9) K/mcL BMP 04/27/18 02:39 Sodium 140 Potassium 3.6 Chloride 104 Carbon Dioxide 30 H BUN 8 Creatinine 0.69 Glucose 89 Calcium 9.4 - ABG Interpretation ABG results: PT/INR, D-dimer PT 11.9 Seconds (9.4-12.1) 04/23/18 05:54 - Impressions Impressions Echocardiogram 04/26/18 10:02 Impressions: LVEF 60%. Normal left ventricular diastolic function. Normal right ventricular structure and function. Very small, mobile echodensity, not well characterized visualized in association with the mitral valve. Mild mitral regurgitation is present. Given the clinical context ([facility] admission records reviewed), findings are suspicious for valvular endocarditis. Recommend TETO for further evaluation. Mild pulmonic regurgitation. No pulmonary hypertension. Findings communicated to ordering provider. Left Ventricular Wall Motion: Rest Echo Findings All wall segments showed normal motion. Findings: Study Quality * Technically adequate exam. ECG Findings * Normal sinus rhythm. Left Ventricle * LVEF 60%. * Normal LV chamber size, wall thickness and function. * Normal left ventricular diastolic function. Right Ventricle * Normal right ventricular structure and function. Left Atrium * Normal left atrial size. Right Atrium * Normal right atrial size. Mitral Valve * No mitral stenosis. * Mild mitral regurgitation. * Very small, mobile echodensity visualized in association with the mitral valve. Aortic Valve * No aortic regurgitation. * Trileaflet aortic valve. * No aortic stenosis. Tricuspid Valve * Normal tricuspid valve structure. * Trace tricuspid regurgitation. * Estimated RA pressure is 3 mmHg. Pulmonic Valve * Pulmonic valve is not well visualized. * No pulmonic stenosis. * Mild pulmonic regurgitation. Pulmonary Artery * Pulmonary artery not well visualized. Aorta * Normally sized aortic root. Pericardium * There is no pericardial effusion present. Interatrial Septum * No evidence of PFO by color Doppler. IVC * The IVC is not dilated. Consult Discharge Plan - Plan Referrals: NONE,PCP [Primary Care Provider] -
[2018-04-28] MEDS: *HR* OxyCODONE Immed Rel 5 MG TABLET PO PRN (05:23)
[2018-04-28] MEDS: *HR* Heparin 5,000 UNIT/ML VIAL SQ SCH ×2 (05:24→17:20)
[2018-04-28] MEDS ORDERED: Lidocaine Viscous Oral Soln 15 ML SOLUTION MM PRN (07:24)
[2018-04-28] MEDS ORDERED: Tetracaine/Benzocaine/Butamben 1 SPRAY AEROSOL MM ONE (07:25)
[2018-04-28] MEDS ORDERED: 0.9 % Sodium Chloride 500 ML IVC ONE (07:25)
[2018-04-28] MEDS: *HR* FentaNYL (PF) 100 MCG/2 ML VIAL IVP PRN ×2 (08:15→08:25)
[2018-04-28] MEDS: *HR* Midazolam HCl 5 MG/5 ML VIAL IVP PRN ×3 (08:15→08:30)
[2018-04-28] MEDS: Gabapentin 400 MG CAPSULE PO SCH ×3 (09:18→20:58)
[2018-04-28] MEDS: Nicotine 14 MG PATCH.TD24 TD SCH (09:18)
--- NOTE | 2018-04-28 09:37 | Infectious Disease Consult ---
Date of Encounter: 04/28/18 Time of Encounter: 09:31 Assessment and Plan (1) Leukopenia Status: Acute Assessment and plan: Likely secondary to infection. Resolved. Continue to trend. Recommendations: - Await repeat blood cultures. - Await TETO results. - Discontinue Vancomycin. - Start Rocephin 2 grams IV daily. Monitor closely for allergic reaction. - Duration of treatment depends on the clinical picture. Will discuss with ortho. - Monitor renal function and for drug toxicity and dose-adjust antibiotics. - Wound care and activity restrictions per the ortho team. Qualifiers: Qualified Code(s): D72.819 - Decreased white blood cell count, unspecified (2) Gram-positive bacteremia Status: Acute Assessment and plan: Causative organism: Strep mitis. To infection versus contaminant. Blood cultures drawn set are negative. Repeat blood culture drawn set was positive for strep mitis. Additional repeat blood cultures drawn 04/26/18 are no growth to date 2 sets. TTE showed a very small mobile echodensity on the mitral valve. TETO has been completed and report is pending. No endocarditis stigmata noted on exam. At this point, the patient has one modified [place] criteria. There is concern that the patient may have an underlying IV drug use history more recently than what she states. (3) Tenosynovitis Status: Acute Assessment and plan: Location: Left hand third digit. Causative organism: MSSA. Orthopedics consulted. Status post left hand I&D of the long finger flexor tendon sheath 04/24/[address] Santiago. Operative note reviewed. Turbid fluid noted Intra-Op. Cultures as above. Failed outpatient oral antibiotics (clindamycin). Antibiotics as above. (4) Cellulitis of left middle finger Status: Acute Assessment and plan: Causative organism: MSSA. Improved. Etiology: Unclear. Antibiotics as above. Failed outpatient oral antibiotics (clindamycin). (5) Seizure disorder Status: Chronic (6) Substance abuse Status: Acute Assessment and plan: Patient reports previous history of IV drug use when she was 13 years old. Apparently, the patient has been treated within the past month and a substance abuse clinic with Suboxone. HIV status was negative. Check hepatitis B and C serologies. (7) Drug allergy, antibiotic Status: Acute Assessment and plan: Patient reports allergies to Bactrim. She also reports allergy to an antibiotic that states with a C and thinks it is cephalexin, although she is not sure. She reports a hive-like reaction in the past. Infectious Disease HPI - Data of Consult Patient: new to practice Consult date: 04/28/18 Requesting Physician: Lona Drake MD Primary Care Provider: PCP NONE - Consult Narrative Reason for consult: Bacteremia, possible endocarditis, finger infection History of present illness: Ms. More is a 38 year old female with a past medical history of bradycardia, seizure disorder secondary to traumatic brain injury, anxiety, and depression. The patient was admitted to the hospital 04/23/2018 for left middle finger infection. We are consulted April 28 for antibiotic recommendations for bacteremia, possible endocarditis, and finger infection. Briefly, the patient is a 38-year-old female with a past medical history as stated above. The patient presented to the emergency department at [facility] for left middle finger swelling and pain. She reported onset of symptoms about 3 weeks prior to arrival. She was evaluated at [facility] and given a 14 day course of oral clindamycin which she took. She states her symptoms improved initially, but worsened shortly before finishing the course of antibiotics. She states that her finger swelling initially improved, but remained painful. She waited a week and then went to [facility]. She had an x-ray of the hand that was negative for fracture or osteomyelitis. She was tr ansferred here for further evaluation. Upon arrival, the patient was afebrile and hemodynamically stable. She did have leukopenia with a white count of 3.5 thousand. Lactic acid and renal function were within normal limits. Blood cultures were obtained 1 set and are no growth to date. She had a CT of the hand that showed tenosynovitis of the third flexor tendons. Orthopedics was consulted who recommended operative intervention. A repeat set of blood cultures drawn 04/24/18 came back positive 06/17 set for S. mitis. Pre-op ESR was86 with a CRP of 20. She was taken to the operating room on April 24 and underwent a left hand I&D of the long finger flexor tendon sheath. Intraoperative cultures were positive for MSSA. Her UDS was positive for THC, amphetamines, and opiates. Repeat blood cultures drawn 04/26/18 are NGTD. No labs have been checked today. Currently, she's on IV Vancomycin. We've been asked to evaluate and make further recommendations. During my exam today, patient endorses a history as stated above. She reports associated subjective fevers and chills. States her appetite has been okay prior to admission, but is now a little worse due to nausea associated with ant ibiotics. She denies any chest pain or shortness of breath. Denies any vomiting or diarrhea. Denies abdominal pain or urinary complaints. Reports that her finger and hand pain is improved. Denies any associated trauma that would explain the onset of her symptoms. Denies any oral thrush or new skin lesions. The patient lives at home with her children. She does not work outside the home. She does have a dog, but denies any bites or scratches. Denies any recent travel outside the [facility]. States she smokes about half pack cigarettes per day. Reports that she uses marijuana regularly. Her urine drug screen is positive for amphetamines, which she states is secondary to using cold medication. Per pharmacy, patient was being treated at a Suboxone clinic in the past month. She denies any chronic infectious diseases. States she used IV drugs back when she was 13 years old, but denies use since then. She does tell me she was hospitalized about a year ago at [facility] for bacteremia with unknown causative organism. She states she was discharged on oral antibiotics. CC: Lona Drake MD Past Med Surg Social Fam HX - Past Medical History Attestation: Yes The following information was validated with the patient. Source: patient, old records reviewed, nursing notes reviewed Medical history: seizures Additional medical history: Traumatic brain injury Psychiatric history: anxiety, depression - Past Surgical History Surgical History: orthopedic, other - Social History Smoking Status: Current every day smoker Packs per day: 0.5 Smokeless Tobacco Status: No Alcohol use: none Drug use: none - Family History Mother Living Status: Age at : 75 Hx Family Cardiac Disorders: Yes Infectious Disease-CN:Meds RX: No Known Home Drugs 04/23/18 [History] Allergy/AdvReac Type Severity Reaction Status Date / Time cephalexin [From Keflex] Allergy Hives Verified 04/28/18 11:03 Sulfa (Sulfonamide Allergy Anaphylaxis Verified 04/23/18 08:30 Antibiotics) venom-honey bee Allergy Swelling Verified 04/23/18 08:30 [bee venom (honey bee)] of Lip/Tongue/Throat All systems: reviewed and no additional remarkable complaints except as stated Exam - Constitutional Vitals: Temp Pulse Resp BP Pulse Ox 97.5 F L 75 12 119/74 96 04/28/18 07:42 04/28/18 07:42 04/28/18 07:42 04/28/18 07:42 04/28/18 07:42 General appearance: average body habitus, cooperative, no acute distress - Head Head exam: Present: atraumatic, normal inspection, normocephalic - Eye Eye exam: Present: EOMI, normal appearance, PERRL Pupils: Present: normal accommodation Additional comments: No subconjunctival hemorrhage noted. - ENT ENT exam: Present: mucous membranes moist - Neck Neck exam: Present: normal inspection - Respiratory Respiratory exam: Present: CTAB. Absent: rales, respiratory distress, rhonchi, wheezes - Cardiovascular Cardiovascular exam: Present: RRR, +S1, +S2 - GI/Abdominal GI/Abdominal exam: Present: normal bowel sounds, soft. Absent: distended, t enderness - Extremities Exam Extremities exam: Present: tenderness (Left hand). Absent: normal inspection (Left hand third metacarpal and middle finger edematous. Surgical sites with sutures intact and wound edges well approximated. Mild erythema noted. Range of motion of the middle finger is limited due to pain and swelling. No redness or streaking up the arm. Capillary refill is brisk. No numbness or tingling noted on exam.), pedal edema - Neurological Exam Neurological exam: Present: alert, oriented X3, no focal deficits - Psychiatric Psychiatric exam: Present: normal affect, normal mood - Skin Skin exam: Present: dry, intact, normal color, warm Additional comments: No endocarditis stigmata noted. Infectious Disease CN: Results - Labs CBC & Chem 7: 04/27/18 02:39 04/27/18 02:39 Cultures: Cultures 04/24/18 14:43 Anaerobic Culture - Preliminary Left Hand At this time, no anaerobic growth is present. The culture will be finalized after 5 days of incubation. 04/24/18 03:03 Blood Culture - Final Peripheral Venipuncture Streptococcus mitis/S.oralis 04/23/18 05:54 Blood Culture - Final Peripheral Venipuncture No growth. Final report. 04/24/18 14:43 Wound Culture - Final Left Hand Staphylococcus aureus 04/26/18 10:28 Blood Culture - Preliminary Peripheral Venipuncture Culture is incubating and being continuously monitored for growth. Final report to follow. 04/26/18 10:28 Blood Culture - Preliminary Peripheral Venipuncture Culture is incubating and being continuously monitored for growth. Final report to follow. Serology: Serology 04/27/18 04/24/18 04/24/18 Range/Units 02:39 10:25 03:03 Urine Test Negative (Negative) A. baumannii (PCR) Not Detected (Not Detect) Tina albicans (PCR) Not Detected (Not Detect) C. glabrata (PCR) Not Detected (Not Detect) C. krusei (PCR) Not Detected (Not Detect) C. parapsilosis (PCR) Not Detected (Not Detect) C. tropicalis (PCR) Not Detected (Not Detect) Enterobacteriac sp PCR Not Detected (Not Detect) E. cloacae complex PCR Not Detected (Not Detect) Enterococcus sp PCR Not Detected (Not Detect) E. coli (PCR) Not Detected (Not Detect) H. influenzae (PCR) Not Detected (Not Detect) HIV Ag/Ab Combo Qual Nonreactive (Nonreactive) Klebsiella oxytoca PCR Not Detected (Not Detect) Klebsiella pneumoniae Not Detected (Not Detect) List. monocytogenes PCR Not Detected (Not Detect) N. meningitidis (PCR) Not Detected (Not Detect) Proteus species (PCR) Not Detected (Not Detect) Serratia marcescens PCR Not Detected (Not Detect) Staphylococcus sp PCR Not Detected (Not Detect) Staph aureus (PCR) Not Detected (Not Detect) mecA-Methicil Res Gene Not Detected (Not Detect) Streptococcus sp PCR DETECTED A (Not Detect) Group A Strep DNA Not Detected (Not Detect) Group B Strep (PCR) Not Detected (Not Detect) Strep pneumoniae (PCR) Not Detected (Not Detect) P. aeruginosa (PCR) Not Detected (Not Detect) Yanci/B-Vanco Res Genes Not Detected (Not Detect) KPC (blaKPC) Detect PCR Not Detected (Not Detect) Consult Discharge Plan - Plan Referrals: Yong Sidhu [Resident] - 05/06/18 4:00 pm (Please follow up as schedule...) Maya Ruiz, PAC [Physician Fermenting Cellar Dropper] - 05/07/18 9:15 am (Please follow up as schedule...) NONE,PCP [Primary Care Provider] - - Attending Attestation I examined this patient and my medical decision-making was reviewed with the Resident Physician. I agree with the documented findings, disposition and treatment plan as described except to the extent set forth below. This is an addendum to original report dictated by Vonnie Coker CNP. Please refer to Rylee davies for full details. Patient is a 38 year old woman with past medical history mentioned below but there is a lot of ambiguity to her past history. She tells us that she has not used IV drugs since she was 13 years of age but when she came in her drug screen was positive for amphetamines. Patie a infection of the left hand third digit separative tenosynovitis status post I&D by Dr. Cherry on 04/24/2018. Intra-Op cultures were positive for MSSA. Patient also had blood culture positive for strep mitis. On evaluation patient does not appear toxic pleasant wound looks great and seems to be healing okay. I did speak with Dr. Cherry and he thinks we are okay with switching her to oral antibiotics and he feels that it is was on the Depo for an infection and he cleared all out. Await TETO results if negative consider switching to oral antibiotics to finish a two-week course. I asked about her allergies to cephalexin and sulfa. She said with sulfa she gets blisters and cephalexin I think she got hives
[2018-04-28] MEDS: *HR* HYDROcodone/Acet 5/325 mg TABLET PO PRN (11:25)
[2018-04-28] MEDS: OXYCODONE Oral CONC 10 MG/0.5 ML ORAL.SYG PO PRN ×2 (12:14→17:21)
[2018-04-28] MEDS: Ibuprofen 600 MG TABLET PO PRN (12:18)
[2018-04-28] MEDS: cefTRIAXone 2,000 MG in 0.9 % Sodium Chloride Mini Bag 100 ML IVPB SCH (14:57)
--- NOTE | 2018-04-28 17:00 | Orthopedics Progress Note ---
Date of Encounter: 04/28/18 Time of Encounter: 16:45 - Assessment and Plan (1) Cellulitis of left middle finger Current Visit: Yes Status: Acute Continue local wound care cleansing with soap/water 3xdaily then recover with dry gauze/kerlix dressings to allow ROM of fingers. Progress motion as tolerated. Continue with hand exercises given by Pt/OT. Patie nt shown again how to do PROM of hand focusing on full flexion/extension. Continue to elevate LUE. Can hang inside stockinette from IV pole to help keep elevated especially while sleeping. Labs: 04/25 - WBC 3.5, ESR 86 -->68, CRP 20 -->12 IV abx and pain control per hospitalist. ID now on board and recommend transitioning to PO abx upon discharge due to patient's h/o IVDA. Wound cultures +MRSA Blood culture + x1 for G+cocci - Strep mitis/oralis Will continue to monitor progress. Will follow up with Maya Ruiz PA-C in [facility] office on 05/07/18 at 9:15am Subjective Principal diagnosis: POD#4 s/p Left hand I&D of long finger flexor tendon sheath 04/24/18 Interval history: Patient doing well on exam with no current concerns but states she had an episode this morning of chills and not feeling well which she states is her warning sign before a seizure. However, she states she never had a seizure today. She expressed concern about her pain medication being switched apparently without the hospitalist discussing with her about weaning down. Intermittent tingling to fingers. Denies any other symptoms at this time. Overall she has seen improvement with the hand pain and swelling and states she has been working on the hand exercises that therapist showed her. Objective Vital signs: Vital Signs Temp Pulse Resp BP Pulse Ox 04/28/18 13:46 98 F 113 18 138/76 96 04/28/18 07:42 97.5 F L 75 12 119/74 96 04/28/18 00:07 99.1 F 88 17 130/83 100 Intake and Output 04/28/18 04/28/18 04/28/18 07:59 15:59 23:59 Intake Total 187 / 187 Balance 187 / 187 Intake: IV Fluids 187 / 187 0.9 % Sodium Chloride 500 ML @ 187 / 187 150 mls/hr IVC .Q3H20M ONE Rx#: [id number] Other: Weight 67.132 kg Patient Weight 04/28/18 23:59 Weight 67.132 kg Incision: swollen (Improving swelling around left 3rd proximal phalanx, erythema resolving, Incisions are healing and no longer gaped, sutures in place. mild tenderness to palpation of proximal phalanx. Continued restriction to 3rd PIPJ but improved motion to all other fingers and wrist. Brisk cap refill. Grossly NV intact. ) - Labs CBC & BMP: 04/27/18 02:39 04/27/18 02:39 Labs: Abnormal lab results RBC 3.52 M/mcL (3.82-4.97) L 04/27/18 02:39 Hgb 10.4 g/dL (11.5-15.4) L 04/27/18 02:39 Hct 31.7 % (35.3-44.9) L 04/27/18 02:39 ESR 68 mm/hr (0-15) H 04/25/18 06:08 APTT 40.3 Seconds (26.0-36.0) H 04/23/18 05:54 Carbon Dioxide 30 mEq/L (23-29) H 04/27/18 02:39 POC Glucose 113 mg/dL (70-99) H 04/25/18 07:51 AST 41 Units/L (13-39) H 04/23/18 05:54 C-Reactive Protein 12 mg/L (Less than 10) H 04/25/18 06:08 Globulin 3.8 g/dL (2.4-3.5) H 04/23/18 05:54 Albumin/Globulin Ratio 1.0 (1.1-2.2) L 04/23/18 05:54 Urine Opiates Screen Positive ng/mL (Eriuwt=360) H 04/24/18 10:25 Ur Amphetamines Screen Positive ng/mL (Qvsynu=9319) H 04/24/18 10:25 U Marijuana (THC) Screen Positive ng/mL (Cutoff = 50) H 04/24/18 10:25 Streptococcus sp PCR DETECTED (Not Detect) A 04/24/18 03:03 Consult Discharge Plan - Plan Referrals: NONE,PCP [Primary Care Provider] -
--- NOTE | 2018-04-28 18:43 | Internal Med Progress Note ---
Hospitalist Progress Note - Encounter Date of Encounter: 04/28/18 Time of Encounter: 18:33 - Subjective Interval History: Per nurse pt has been pocketing her pain medications in her mouth. There has also been concern that she may be tampering with her IV and was extremely drowsy this evening, 04/28/2018. Boyfriend going in and out of the room. Pt states still having left middle finger pain. She denies fever, chills, N/V or diarrhea. She denies chest pain or SOB. - Exam Vitals: Temp Pulse Resp BP Pulse Ox 97.6 F 108 19 106/67 89 04/28/18 16:59 04/28/18 16:59 04/28/18 16:59 04/28/18 16:59 04/28/18 16:59 Exam: General: Well developed and well-appearing and in no acute distress Skin: Warm and supple HEENT: Moist mucous membranes. No conjunctivae pallor. Neck: No lymphadenopathy. No JVD. No carotid bruits. No palpable thyroid. Chest: Normal thoracic expansion. Normal breath sounds. Clear to auscultation. Heart: Normal S1 & S2; rhythmic. No rubs or murmurs. Abdomen: Non-distended, soft and non-tender to palpation. No peritoneal reaction. Extremities: No clubbing, cyanosis. moving the fingers of the left hand, swollen, wrapped in clean dressing Neurological: Awake, alert and oriented to person, place and time. No focal deficits. Psych: Affect appropriate. - Assessment and Plan (1) Tenosynovitis Current Visit: Yes Status: Acute Assessment and Plan: Has failed 2 weeks of outpatient therapy and thereby warrants inpatient admission. WBC 3.5, ESR 86 -->68, CRP 20 -->[address] of L hand showed tenosynovitis of 3rd digit/middle finger Orthopedic service consulted and pt taken to OR 04/24/2018. She is s/p L hand incision and drainage of long finger flexor tendon sheath. Was on IV Vancomycin but switched to Rocephin by ID. Wound culture from 04/26- grew MSSA Blood cultures grew strep mitis/Strep oralis ID on board and awaiting final antibiotic recommendation. Will adjust antibiotic based on culture and sensitivity results. Orthopedic does ot recommend IV antibiotic due to drug use history. (2) Cellulitis of left middle finger Current Visit: Yes Status: Acute Assessment and Plan: s/p I&D of left 3rd digit of left hand. Orthopedics on board WBC 3.5 up to 5.2, ESR 86 -->68, CRP 20 -->12 Was on IV Vancomycin but switched to Rocephin by ID. Wound culture from 04/26- grew MSSA Blood cultures grew strep mitis/Strep oralis local wound care cleansing with soap/water 3x daily then recover with dry gauze/kerlix dressings to allow ROM of fingers. has drug use disorder but is not forth coming about what she uses. UDS positive for Meth, THC, and opiates of unknwon ID TTE suspicious for valvular endocarditis TETO showed no evidence of valvular vegetation TTE EV/EV echocardiogram Impressions: LVEF 60%. Normal left ventricular diastolic function. Normal right ventricular structure and function. Very small, mobile echodensity, not well characterized visualized in association with the mitral valve. Mild mitral regurgitation is present. Given the clinical context ([facility] admission records reviewed), findings are suspicious for valvular endocarditis. Recommend TETO for further evaluation. Mild pulmonic regurgitation. No pulmonary hypertension. Findings communicated to ordering provider. Left Ventricular Wall Motion: Rest Echo Findings All wall segments showed normal motion. TETO Impressions: LVEF 60 %. Normal LV size and function. Normal right ventricle size and systolic function. No significant valvuar dysfunction. No evidence or valaular vegetation. Left Ventricular Wall Motion: Transesophageal Echo Findings All wall segments showed normal motion. (3) Seizure disorder Current Visit: Yes Status: Chronic Assessment and Plan: Patient reports being on "Neurontin 800mg TID". Sz precautions (4) Bradycardia Current Visit: Yes Status: Chronic Assessment and Plan: Sinus. Asymptomatic. No further intervention needed. (5) Smoker Current Visit: Yes Status: Chronic Assessment and Plan: Counseled extensively and resources made available. Cessation strongly advised. (6) Substance abuse Current Visit: Yes Status: Acute Assessment and Plan: Pt not forthcoming about drug use hx. She last filled suboxone Feb 2018. Pt's urine toxicology tested positive for amphetamines, opiates and marijuanna Cessation strongly advised. Per nurse pt has been pocketing her pain medications in her mouth. There has also been concern that she may be tampering with her IV and was extremely drowsy this evening, 04/28/2018. Boyfriend going in and out of the room. (7) Gram-positive bacteremia Current Visit: Yes Status: Acute - Time Spent with Patient Total time spent is greater than 50% in coordination of care (as documented) at patient's floor/unit and/or counseling patient: Internal Medicine: Result - Labs CBC & Chem 7: 04/27/18 02:39 04/27/18 02:39 - ABG Interpretation ABG results: PT/INR, D-dimer PT 11.9 Seconds (9.4-12.1) 04/23/18 05:54 Consult Discharge Plan - Plan Referrals: Maya Ruiz, PAC [Physician Car Repairer [employer]] - 05/07/18 9:15 am (Please follow up as schedule...) NONE,PCP [Primary Care Provider] -
[2018-04-28] MEDS ORDERED: *HR* Promethazine 25 MG/ML VIAL IVP PRN (21:14)
[2018-04-28] MEDS ORDERED: traMADol 50 MG TABLET PO PRN (21:19)
[2018-04-28] MEDS: *HR* OxyCODONE/APAP 7.5/325 TABLET PO PRN (23:00)
[2018-04-29] MEDS: *HR* OxyCODONE/APAP 7.5/325 TABLET PO PRN ×2 (05:20→11:35)
[2018-04-29] MEDS: *HR* Heparin 5,000 UNIT/ML VIAL SQ SCH (05:24)
[2018-04-29] MEDS: cefTRIAXone 2,000 MG in 0.9 % Sodium Chloride Mini Bag 100 ML IVPB SCH (08:54)
[2018-04-29] MEDS: Nicotine 14 MG PATCH.TD24 TD SCH (08:55)
[2018-04-29] MEDS: Gabapentin 400 MG CAPSULE PO SCH (08:56)
[2018-04-29 11:15] VITALS: BP 107/61
--- NOTE | 2018-04-29 12:51 | Orthopedics Progress Note ---
Date of Encounter: 04/29/18 Time of Encounter: 12:40 - Assessment and Plan (1) Cellulitis of left middle finger Current Visit: Yes Status: Acute Continue local wound care cleansing with soap/water 3xdaily then recover with dry gauze/kerlix dressings to allow ROM of fingers. Progress motion as tolerated. Continue with hand exercises given by Pt/OT. Patie nt shown again how to do PROM of hand focusing on full flexion/extension. Continue to elevate LUE. pain control per hospitalist. 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 Wound cultures +MRSA Blood culture + for G+cocci - Strep mitis/oralis Will follow up with Maya Ruiz PA-C in [facility] office on 05/07/18 at 9:15am for wound check and suture removal. Subjective Principal diagnosis: POD#5 s/p Left hand I&D of long finger flexor tendon sheath 04/24/18 Interval history: Patient states she continues to do well and seeing progress each day. Continues soreness improving but still worse have doing her exercises. Denies any new concerns at this time other than concern for being given pain medication upon discharge. She asked multiple times during exam yesterday and today. Objective Vital signs: Vital Signs Temp Pulse Resp BP Pulse Ox 04/29/18 11:11 97.7 F 82 18 107/61 100 04/29/18 06:52 97.6 F 80 16 101/66 97 04/29/18 05:37 98.8 F 105 16 156/72 98 04/29/18 01:05 97.7 F 78 16 103/64 98 04/28/18 21:03 98.8 F 92 16 107/52 97 04/28/18 16:59 97.6 F 108 19 106/67 89 04/28/18 13:46 98 F 113 18 138/76 96 Intake and Output 04/28/18 04/29/18 04/29/18 23:59 07:59 15:59 Intake Total 460 / 460 Balance 460 / 460 Intake: IV Fluids 100 / 100 Rocephin 2,000 MG In 0.9 % 100 / 100 Sodium Chloride (Mini-Bag +) 100 ML @ 200 mls/hr IVPB DAILY [facility] Rx#:[id number] Oral 360 / 360 Other: Meal ruel [place] Breakfast Percent of Meal Consumed 100% Weight 68 kg Patient Weight 04/29/18 23:59 Weight 68 kg Incision: swollen (continued but improving swelling to 3rd proximal phalanx and MC head on palmar side. Erythema resolving. 3rd digit still limited ROM at PIPJ. full motion of other fingers and wrist. brisk cap refill, NV intact distally) - Labs CBC & BMP: 04/27/18 02:39 04/27/18 02:39 Labs: Abnormal lab results RBC 3.52 M/mcL (3.82-4.97) L 04/27/18 02:39 Hgb 10.4 g/dL (11.5-15.4) L 04/27/18 02:39 Hct 31.7 % (35.3-44.9) L 04/27/18 02:39 ESR 68 mm/hr (0-15) H 04/25/18 06:08 APTT 40.3 Seconds (26.0-36.0) H 04/23/18 05:54 Carbon Dioxide 30 mEq/L (23-29) H 04/27/18 02:39 POC Glucose 113 mg/dL (70-99) H 04/25/18 07:51 AST 41 Units/L (13-39) H 04/23/18 05:54 C-Reactive Protein 12 mg/L (Less than 10) H 04/25/18 06:08 Globulin 3.8 g/dL (2.4-3.5) H 04/23/18 05:54 Albumin/Globulin Ratio 1.0 (1.1-2.2) L 04/23/18 05:54 Urine Opiates Screen Positive ng/mL (Lywtus=175) H 04/24/18 10:25 Ur Amphetamines Screen Positive ng/mL (Qviteo=2378) H 04/24/18 10:25 U Marijuana (THC) Screen Positive ng/mL (Cutoff = 50) H 04/24/18 10:25 Streptococcus sp PCR DETECTED (Not Detect) A 04/24/18 03:03 Consult Discharge Plan - Plan Referrals: Yong Sidhu [Resident] - 05/06/18 4:00 pm (Please follow up as schedule...) Maya Ruiz, PAC [Physician Casino Runner] - 05/07/18 9:15 am (Please follow up as schedule...) NONE,PCP [Primary Care Provider] -
--- NOTE | 2018-04-29 14:19 | Discharge Summary ---
- NOTES TO OUTPATIENT PROVIDER Notes to Outpatient Provider: PC in 5 to 7 days. Will follow up with Maya Ruiz PA-C in [facility] office on 05/07/18 at 9:15am for wound check and suture removal. Orders not resulted at time of discharge: Pending orders 04/24/18 14:43 Culture,Anaerobic [RM] Routine 04/26/18 10:28 Culture,Blood [BC] Stat Date of Encounter: 04/29/18 Time of Encounter: 14:15 - Discharge Diagnosis (1) Tenosynovitis Priority: Primary Status: Acute Assessment and Plan: Has failed 2 weeks of outpatient therapy and thereby warrants inpatient admission. WBC 3.5, ESR 86 -->68, CRP 20 -->[address] of L hand showed tenosynovitis of 3rd digit/middle finger Orthopedic service consulted and pt taken to OR 04/24/2018. She is s/p L hand incision and drainage of long finger flexor tendon sheath. Was on IV Vancomycin but switched to Rocephin by ID. Wound culture from 04/26- grew MSSA Blood cultures grew strep mitis/Strep oralis ID on board and awaiting final antibiotic recommendation. Will adjust antibiotic based on culture and sensitivity results. Orthopedic does to recommend IV antibiotic due to drug use history. Discharging on Augmentin 125/875 mg PO BID to complete antibiotic course Pt left AMA and refused to wait for appropriate medical discharge. (2) Cellulitis of left middle finger Priority: Primary Status: Acute Assessment and Plan: s/p I&D of left 3rd digit of left hand. Orthopedics on board WBC 3.5 up to 5.2, ESR 86 -->68, CRP 20 -->12 Was on IV Vancomycin but switched to Rocephin by ID. Discharging on Augmentin to complete antibiotic course Wound culture from 04/26- grew MSSA Blood cultures grew strep mitis/Strep oralis local wound care cleansing with soap/water 3x daily then recover with dry gauze/kerlix dressings to allow ROM of fingers. has drug use disorder but is not forth coming about what she uses. UDS positive for Meth, THC, and opiates of unknwon ID TTE suspicious for valvular endocarditis TETO showed no evidence of valvular vegetation TTE EV/EV echocardiogram Impressions: LVEF 60%. Normal left ventricular diastolic function. Normal right ventricular structure and function. Very small, mobile echodensity, not well characterized visualized in association with the mitral valve. Mild mitral regurgitation is present. Given the clinical context ([facility] admission records reviewed), findings are suspicious for valvular endocarditis. Recommend TETO for further evaluation. Mild pulmonic regurgitation. No pulmonary hypertension. Findings communicated to ordering provider. Left Ventricular Wall Motion: Rest Echo Findings All wall segments showed normal motion. TETO Impressions: LVEF 60 %. Normal LV size and function. Normal right ventricle size and systolic function. No significant valvuar dysfunction. No evidence or valaular vegetation. Left Ventricular Wall Motion: Transesophageal Echo Findings All wall segments showed normal motion. (3) Seizure disorder Priority: Secondary Status: Chronic Assessment and Plan: Patient reports being on "Neurontin 800mg TID". Sz precautions (4) Bradycardia Priority: Secondary Status: Chronic Assessment and Plan: Sinus. Asymptomatic. No further intervention needed. (5) Smoker Priority: Secondary Status: Chronic Assessment and Plan: Counseled extensively and resources made available. Cessation strongly advised. (6) Substance abuse Priority: Secondary Status: Acute Assessment and Plan: Pt not forthcoming about drug use hx. She last filled suboxone Feb 2018. Pt's urine toxicology tested positive for amphetamines, opiates and marijuanna Cessation strongly advised. Per nurse pt has been pocketing her pain medications in her mouth. There has also been concern that she may be tampering with her IV and was extremely drowsy this evening, 04/28/2018. Boyfriend going in and out of the room. (7) Gram-positive bacteremia Priority: Primary Status: Acute Assessment and Plan: WBC 3.5, ESR 86 -->68, CRP 20 -->12 with cellulitis and tenosynovitis of the left hand on IV vancomycin switched to Rocephin has history of drug use TTE ordered 2 new Bcx ordered on 04/26/18 will follow HIV with AM labs Discharging on Augmentin to complete antibiotic course (8) Medical non-compliance Priority: Primary Status: Acute Assessment and Plan: In addition to above notes, pt was attempting to leave hospital premises with IV in her arm. Hospital course: Ms. More is a 38 year old female - Time Spent with Patient Total time spent providing and/or coordinating discharge services: - Discharge Medications Home Medications: Amoxicillin/Clavulanate [Augmentin] 875 mg PO BIDWM #10 tablet 04/29/18 [Rx] Allergies/Adverse Reactions: 3 Allergy/AdvReac Type Severity Reaction Status Date / Time cephalexin [From Keflex] Allergy Hives Verified 04/28/18 11:03 Sulfa (Sulfonamide Allergy Anaphylaxis Verified 04/23/18 08:30 Antibiotics) venom-honey bee Allergy Swelling Verified 04/23/18 08:30 [bee venom (honey bee)] of Lip/Tongue/Throat Date of admission: 04/23/18 04:04 Primary care physician: PCP NONE Consults: 04/27/18 14:08 Consult to Infectious Diseases [CONS] Routine Consulting Provider: Infectious Disease [place] Reason for Consult: bacteremia, IVD, finger infection Call Completed: Yes 04/28/18 18:43 Consult to Employment And Claims Aide [CONS] Routine Reason for SW Consult: POA paperwork Discharging clinician: Azra Chávez Anticipated date of discharge: 04/29/18 - Constitutional Vitals: Temp Pulse Resp BP Pulse Ox 97.7 F 82 18 107/61 100 04/29/18 11:11 04/29/18 11:11 04/29/18 11:11 04/29/18 11:11 04/29/18 11:11 Exam: General: Well developed and well-appearing and in no acute distress Skin: Warm and supple HEENT: Moist mucous membranes. No conjunctivae pallor. Neck: No lymphadenopathy. No JVD. No carotid bruits. No palpable thyroid. Chest: Normal thoracic expansion. Normal breath sounds. Clear to auscultation. Heart: Normal S1 & S2; rhythmic. No rubs or murmurs. Abdomen: Non-distended, soft and non-tender to palpation. No peritoneal reaction. Extremities: No clubbing, cyanosis. moving the fingers of the left hand, swollen but much improved, wrapped in clean dressing Neurological: Awake, alert and oriented to person, place and time. No focal deficits. Psych: Affect appropriate. - Patient Status Disposition: Left Against Medical Advice Condition: Good Overall status at discharge: patient is progressing back to baseline - Discharge Instructions Instructions: Cellulitis (DC) Follow Up With: Yong Sidhu [Resident] - 05/06/18 4:00 pm (Please follow up as schedule...) Maya Ruiz, PAC [Physician Cottonseed Meat Presser] - 05/07/18 9:15 am (Please follow up as schedule...) NONE,PCP [Primary Care Provider] - - Diet and Activity Activity: increase activity as tolerated Diet: advance to your usual diet
== END 2018-04-29 14:23 | disposition left against medical advice (07) | DRG 316 ==
LOC: 2ANU → SUATTDRO 04:04
PROVIDERS: ADMIT Internal Medicine; ATTEND Hospitalist